=== PATIENT | male | born 1995 | race Caucasian/White ===

== ENCOUNTER 2017-07-04 22:01 | Emergency (ER) | payer OTHER ==
[~2017-07-04] VITALS: Ht 193 cm; Wt 81.6 kg
[2017-07-04] MEDS ORDERED: ALBU2.5V12 IH (22:13)
[2017-07-04] MEDS ORDERED: FEXO180T72 PO (22:13)
[2017-07-04] MEDS ORDERED: SOLU-MEDROL ONE (22:24)
[2017-07-04] MEDS ORDERED: DECADRON IH STA (22:25)
[2017-07-04] MEDS ORDERED: SOLU-MEDROL IM STA (22:25)
[2017-07-04] MEDS ORDERED: DUONEB 0.5 MG-3 MG/3 ML SOLN IH STA (22:25)
[2017-07-04] MEDS ORDERED: DECADRON ONE (22:27)
[2017-07-04] MEDS ORDERED: DUONEB 0.5 MG-3 MG/3 ML SOLN IH ONE (22:27)
--- NOTE | 2017-07-04 22:29 | ER.PDOC ---
General Chief Complaint: Dyspnea/Respdistress Stated Complaint: ASTHMA Time seen by MD: 22:27 Source: patient Exam Limitations: no limitations History of Present Illness Initial Comments Known asthmatic and wheezing today. Severity: moderate Initiating Event: out of meds Associated Symptoms: trouble breathing, chest tightness Allergies: Coded Allergies: No Known Allergies (Unverified , 07/04/17) Home Meds Reported Medications Fexofenadine Hcl (JULIA ALLERGY) 180 Mg Tablet, 180 MG PO DAILY, TABLET 07/04/17 Albuterol Sulfate (ALBUTEROL SULFATE) 2.5 Mg/0.5 Ml Vial.neb, 2.5 MG IH PRN Y for SHORTNESS OF BREATH 07/04/17 Past Medical History Medical History: asthma Surgical History: no surgical history Social History Smoking: non-smoker Alcohol Use: none Drug Use: none Constitutional: no symptoms reported Respiratory: see HPI Cardiovascular: no symptoms reported Gastrointestinal: no symptoms reported Genitourinary: no symptoms reported Musculoskeletal: no symptoms reported All Other Systems: Reviewed and Negative Physical Exam General Appearance: alert, no distress Neck: nml inspection, non-tender Respiratory: chest non-tender, no respiratory distress, wheezing Cardiovascular: Normal Peripheral Pulses, Regular Rate, Rhythm, No Edema, No Gallop, No JVD, No Murmur Abdomen: non-tender, no organomegaly Extremities: non-tender, nml ROM, no pedal edema NEURO/PSYCH: oriented x 3, CN's nml as tested, motor nml, sensation nml, mood/ affect nml Progress Progress Wheezes resolved and patient feeling better. Departure Time of Disposition: 22:28 Disposition: 01 HOME, SELF-CARE Impression: Primary Impression: Asthma exacerbation Condition: Improved Additional Instructions: Albuterol HFA Prednisone F/U with your PCP in 2-3 days JUAN RITTER MD Jul 04, 2017 22:29
--- NOTE | 2017-07-04 22:49 | NUR ---
DISCHARGE PT REPORTS HE IS FEELING BETTER AND IS READY TO GO. DISCHARGE INSTRUCTIONS AND PRESCRIPTION MEDICATIONS DISCUSSED. PT AND FATHER VERBALIZED UNDERSTANDING. ENCOURAGED TO RETURN FOR ANY CONCERNS.
[2017-07-04 22:53] VITALS: BP 127/73
== END 2017-07-04 22:49 | disposition home or self-care (01) ==
LOC: ER 22:01
DX: J45.901 Unspecified asthma with (acute) exacerbation (principal); R07.89 Other chest pain; Z79.899 Other long term (current) drug therapy
CPT/HCPCS: 94640; 96372; 99283; J1100; J2930; J7620